=== PATIENT | female | born 1930 | race Caucasian/White ===

== ENCOUNTER 2021-07-20 07:06 | Inpatient (IN) | payer MEDICARE, BC ==
[2021-07-20] MEDS ORDERED: Sodium Chloride 0.9% 2.5 ML Syringe FLUSH PRN ×2 (07:16→11:38)
[2021-07-20] MEDS ORDERED: Sodium Chloride 0.9% 10 ML Syringe FLUSH PRN ×2 (07:16→11:38)
[2021-07-20] MEDS ORDERED: Gabapentin 100 MG Cap PO ONE (07:31)
[2021-07-20] MEDS ORDERED: Hydrochlorothiazide/Losartan 12.5-50 mg Tab PO STA (07:33)
[2021-07-20] MEDS ORDERED: Albuterol/Ipratropium 3.0-0.5 MG/3 ML Neb Soln NEB ONE (07:33)
[2021-07-20] MEDS ORDERED: Ondansetron 4 MG/2 ML SDV IVPUSH ONE (07:55)
[2021-07-20] MEDS ORDERED: Morphine 2 MG/ML SYRINGE IVPUSH ONE (07:55)
[2021-07-20 08:37] LABS: BLOOD UREA NITROGEN,BUN 26 mg/dL (7.0-18.0); CARBON DIOXIDE,CO2 25.4 mmol/L (21.0-32.0); CHLORIDE,CL 101 mmol/L (98-107); GLUCOSE RANDOM 195 mg/dL (74-106); POTASSIUM,K 4.2 mmol/L (3.5-5.1); SODIUM,NA 138 mmol/L (136-145)
[2021-07-20] MEDS ORDERED: Acetaminophen 325 MG Tab PO PRN (11:38)
[2021-07-20] MEDS ORDERED: Ondansetron 4 MG/2 ML SDV IVPUSH PRN (11:40)
[2021-07-20] MEDS ORDERED: Albuterol/Ipratropium 3.0-0.5 MG/3 ML Neb Soln NEB PRN (11:40)
[2021-07-20] MEDS ORDERED: Bisacodyl 10 MG Supp RECTAL PRN (11:45)
[2021-07-20] MEDS ORDERED: 50% Dextrose in Water 50 ML Syringe IVPUSH PRN (11:46)
[2021-07-20] MEDS ORDERED: Glucagon,Human Recombinant 1 MG Vial IM PRN (11:46)
[2021-07-20] MEDS: Insulin Aspart 100 Units/ML 3 ML Pen SUBCUT SCH ×2 (14:01→17:37)
[2021-07-20] MEDS ORDERED: Fluticasone NASAL Spray 16 GM Bottle NASBOTH PRN (14:47)
[2021-07-20] MEDS ORDERED: Magnesium Hydroxide 400 MG/5 ML Susp 30 ML Cup PO PRN (14:47)
[2021-07-20] MEDS: Omeprazole 20 MG Cap.CR PO SCH (17:37)
[2021-07-20] MEDS: Albuterol 8 GM Inhaler INH SCH (17:38)
[2021-07-20] MEDS: Morphine 2 MG/ML SYRINGE IVPUSH PRN ×2 (17:38→21:51)
[2021-07-20] MEDS: Latanoprost 0.005% Ophth Soln 2.5 ML Bottle EYERT SCH (21:00)
[2021-07-20] MEDS ORDERED: LORazepam 0.5 MG Tab PO SCH (21:00)
[2021-07-20] MEDS: Docusate Sodium 100 MG Cap PO SCH (21:55)
[2021-07-20] MEDS: Gabapentin 100 MG Cap PO SCH (21:55)
[2021-07-20] MEDS: Fish Oil/Omega-3 Fatty Acids 1 Gm Cap PO SCH (21:55)
[2021-07-20] MEDS: Gabapentin 300 MG Cap PO SCH (21:55)
[2021-07-20] MEDS: Calcium Carbonate/Vitamin D3 1500 MG-400 Units Tab PO SCH (21:56)
[2021-07-20] MEDS: LORazepam 1 MG Tab PO SCH (21:57)
[2021-07-20] MEDS ORDERED: Lactated Ringers 1,000 ML IV ONE (23:30)
[2021-07-21] MEDS: Morphine 2 MG/ML SYRINGE IVPUSH PRN ×3 (00:39→18:04)
[2021-07-21] MEDS: Fish Oil/Omega-3 Fatty Acids 1 Gm Cap PO SCH ×3 (06:08→21:32)
[2021-07-21] MEDS: Albuterol 8 GM Inhaler INH SCH ×3 (06:20→18:06)
[2021-07-21 09:10] LABS: CARBON DIOXIDE,CO2 27.9 mmol/L (21.0-32.0); POTASSIUM,K 4.1 mmol/L (3.5-5.1)
[2021-07-21] MEDS: LORazepam 1 MG Tab PO SCH ×2 (09:33→21:31)
[2021-07-21] MEDS: Insulin Aspart 100 Units/ML 3 ML Pen SUBCUT SCH ×4 (09:33→18:09)
[2021-07-21] MEDS: Docusate Sodium 100 MG Cap PO SCH ×2 (09:34→21:32)
[2021-07-21] MEDS: Citalopram 20 MG Tab PO SCH (09:34)
[2021-07-21] MEDS: Hydrochlorothiazide/Losartan 12.5-50 mg Tab PO SCH (09:34)
[2021-07-21] MEDS: Calcium Carbonate/Vitamin D3 1500 MG-400 Units Tab PO SCH ×2 (09:34→21:32)
[2021-07-21] MEDS: Multivitamin Tab PO SCH (09:35)
[2021-07-21] MEDS: Gabapentin 100 MG Cap PO SCH ×2 (09:35→21:32)
[2021-07-21] MEDS ORDERED: ceFAZolin 2 GM in Premix Bag 1 BAG IV ONE (12:00)
[2021-07-21] MEDS ORDERED: Tranexamic Acid 1,000 MG in Sodium Chloride 0.9% 100 ML IV ONE (12:00)
[2021-07-21] MEDS ORDERED: Dexamethasone 4 MG/ML 5 ML MDV ONE (12:44)
[2021-07-21] MEDS ORDERED: Lidocaine 2% 5 ML SDV ONE (12:44)
[2021-07-21] MEDS ORDERED: Propofol 200 MG/20 ML SDV ONE ×2 (12:44→14:51)
[2021-07-21] MEDS ORDERED: fentaNYL 100 MCG/2 ML SDV ONE ×3 (12:44→14:12)
[2021-07-21] MEDS ORDERED: Ondansetron 4 MG/2 ML SDV ONE (12:44)
[2021-07-21] MEDS ORDERED: Albuterol 0.083% 2.5 MG/3 ML Neb Soln NEB PRN (13:18)
[2021-07-21] MEDS ORDERED: Naloxone 0.4 MG/ML SDV IVPUSH PRN (13:18)
[2021-07-21] MEDS ORDERED: Metoclopramide 10 MG/2 ML SDV IVPUSH PRN (13:18)
[2021-07-21] MEDS ORDERED: HYDROmorphone 1 MG/ML Syringe IVPUSH PRN (13:18)
[2021-07-21] MEDS ORDERED: fentaNYL 100 MCG/2 ML SDV IVPUSH PRN (13:18)
[2021-07-21] MEDS ORDERED: Ondansetron 4 MG/2 ML SDV IVPUSH PRN (13:18)
[2021-07-21] MEDS ORDERED: Ketamine HCL/NACL, ISO-OSM 50 MG/5 ML Syringe ONE (14:21)
[2021-07-21] MEDS ORDERED: Octyl 2-Cyanoacrylate 1 Tube ONE ×2 (14:57→15:01)
[2021-07-21] MEDS ORDERED: traMADol 50 MG Tab PO PRN (15:54)
[2021-07-21] MEDS: Omeprazole 20 MG Cap.CR PO SCH (18:05)
[2021-07-21] MEDS: Latanoprost 0.005% Ophth Soln 2.5 ML Bottle EYERT SCH (21:00)
[2021-07-21] MEDS: ceFAZolin 2 GM in Premix Bag 1 BAG IV SCH (21:32)
[2021-07-21] MEDS: Gabapentin 300 MG Cap PO SCH (21:32)
[2021-07-22] MEDS: Albuterol 8 GM Inhaler INH SCH ×4 (00:05→13:12)
[2021-07-22] MEDS: Fish Oil/Omega-3 Fatty Acids 1 Gm Cap PO SCH ×3 (06:10→21:44)
[2021-07-22] MEDS: ceFAZolin 2 GM in Premix Bag 1 BAG IV SCH (06:13)
[2021-07-22 08:08] LABS: CARBON DIOXIDE,CO2 27.4 mmol/L (21.0-32.0); POTASSIUM,K 4.4 mmol/L (3.5-5.1)
[2021-07-22] MEDS: Docusate Sodium 100 MG Cap PO SCH ×2 (08:35→21:43)
[2021-07-22] MEDS: Calcium Carbonate/Vitamin D3 1500 MG-400 Units Tab PO SCH ×2 (08:35→21:43)
[2021-07-22] MEDS: Gabapentin 100 MG Cap PO SCH (08:35)
[2021-07-22] MEDS: Multivitamin Tab PO SCH (08:35)
[2021-07-22] MEDS: Hydrochlorothiazide/Losartan 12.5-50 mg Tab PO SCH (08:36)
[2021-07-22] MEDS: Citalopram 20 MG Tab PO SCH (08:36)
[2021-07-22] MEDS: Polyethylene Glycol 3350 Powder 17 GM Packet PO SCH (08:38)
[2021-07-22] MEDS: Insulin Aspart 100 Units/ML 3 ML Pen SUBCUT SCH ×3 (09:07→17:39)
[2021-07-22] MEDS: traMADol 50 MG Tab PO PRN (10:18)
[2021-07-22] MEDS: LORazepam 1 MG Tab PO SCH ×2 (13:17→21:44)
[2021-07-22] MEDS: Morphine 2 MG/ML SYRINGE IVPUSH PRN (14:29)
[2021-07-22] MEDS: Enoxaparin 40 MG/0.4 ML Syringe SUBCUT SCH (17:38)
[2021-07-22] MEDS: Omeprazole 20 MG Cap.CR PO SCH (17:39)
[2021-07-22] MEDS: Gabapentin 300 MG Cap PO SCH (21:43)
[2021-07-22] MEDS: Latanoprost 0.005% Ophth Soln 2.5 ML Bottle EYERT SCH (22:17)
[2021-07-23] MEDS: Albuterol 8 GM Inhaler INH SCH ×5 (02:07→19:08)
[2021-07-23] MEDS: traMADol 50 MG Tab PO PRN ×3 (02:10→21:22)
[2021-07-23] MEDS: Gabapentin 100 MG Cap PO SCH ×3 (04:45→13:17)
[2021-07-23] MEDS: Fish Oil/Omega-3 Fatty Acids 1 Gm Cap PO SCH ×3 (05:54→21:20)
[2021-07-23 06:43] LABS: CARBON DIOXIDE,CO2 28.5 mmol/L (21.0-32.0); POTASSIUM,K 4.1 mmol/L (3.5-5.1)
[2021-07-23] MEDS: Insulin Aspart 100 Units/ML 3 ML Pen SUBCUT SCH ×3 (08:27→17:32)
[2021-07-23] MEDS: Hydrochlorothiazide/Losartan 12.5-50 mg Tab PO SCH (08:28)
[2021-07-23] MEDS: Docusate Sodium 100 MG Cap PO SCH ×2 (08:28→21:21)
[2021-07-23] MEDS: LORazepam 1 MG Tab PO SCH ×2 (08:29→21:21)
[2021-07-23] MEDS: Multivitamin Tab PO SCH (08:29)
[2021-07-23] MEDS: Polyethylene Glycol 3350 Powder 17 GM Packet PO SCH (08:29)
[2021-07-23] MEDS: Calcium Carbonate/Vitamin D3 1500 MG-400 Units Tab PO SCH ×2 (08:29→21:21)
[2021-07-23] MEDS: Citalopram 20 MG Tab PO SCH (08:29)
[2021-07-23] MEDS: Enoxaparin 40 MG/0.4 ML Syringe SUBCUT SCH (14:49)
[2021-07-23] MEDS: Omeprazole 20 MG Cap.CR PO SCH (17:34)
[2021-07-23] MEDS: Gabapentin 300 MG Cap PO SCH (21:20)
[2021-07-23] MEDS: Latanoprost 0.005% Ophth Soln 2.5 ML Bottle EYERT SCH (21:23)
[2021-07-24] MEDS: Albuterol 8 GM Inhaler INH SCH ×3 (00:35→11:06)
[2021-07-24] MEDS: traMADol 50 MG Tab PO PRN ×2 (03:25→11:12)
[2021-07-24] MEDS: Fish Oil/Omega-3 Fatty Acids 1 Gm Cap PO SCH (06:15)
[2021-07-24] MEDS: Gabapentin 100 MG Cap PO SCH (08:31)
[2021-07-24] MEDS: LORazepam 1 MG Tab PO SCH (08:31)
[2021-07-24] MEDS: Hydrochlorothiazide/Losartan 12.5-50 mg Tab PO SCH (08:31)
[2021-07-24] MEDS: Polyethylene Glycol 3350 Powder 17 GM Packet PO SCH (08:31)
[2021-07-24] MEDS: Citalopram 20 MG Tab PO SCH (08:32)
[2021-07-24] MEDS: Multivitamin Tab PO SCH (08:32)
[2021-07-24] MEDS: Calcium Carbonate/Vitamin D3 1500 MG-400 Units Tab PO SCH (08:33)
[2021-07-24] MEDS: Docusate Sodium 100 MG Cap PO SCH (08:33)
[2021-07-24] MEDS: Insulin Aspart 100 Units/ML 3 ML Pen SUBCUT SCH (08:34)
== END 2021-07-24 11:50 | DRG 482 ==
LOC: MW.ED 07:06 → MW.MS 10:27
PROVIDERS: ADMIT Student in an Organized Health Care Education/Training Program; ATTEND Student in an Organized Health Care Education/Training Program
PROC: 0QS706Z Reposition Left Upper Femur with Intramedullary Internal Fixation Device, Open Approach (ICD-10-PCS; principal; 2021-07-21)
DX: S72.142A Displaced intertrochanteric fracture of left femur, initial encounter for closed fracture (principal); S51.811A Laceration without foreign body of right forearm, initial encounter; M85.80 Other specified disorders of bone density and structure, unspecified site; G47.33 Obstructive sleep apnea (adult) (pediatric); I10 Essential (primary) hypertension; E78.5 Hyperlipidemia, unspecified; E11.9 Type 2 diabetes mellitus without complications; K21.9 Gastro-esophageal reflux disease without esophagitis; Z66 Do not resuscitate; J44.9 Chronic obstructive pulmonary disease, unspecified; Z20.822 Contact with and (suspected) exposure to COVID-19; E78.00 Pure hypercholesterolemia, unspecified; F41.9 Anxiety disorder, unspecified; R53.1 Weakness; F32.A Depression, unspecified; H40.9 Unspecified glaucoma; H35.30 Unspecified macular degeneration; M19.90 Unspecified osteoarthritis, unspecified site; E66.9 Obesity, unspecified; Z99.89 Dependence on other enabling machines and devices; Z85.528 Personal history of other malignant neoplasm of kidney; Z86.16 Personal history of COVID-19; Z88.1 Allergy status to other antibiotic agents; Z88.8 Allergy status to other drugs, medicaments and biological substances; Z79.82 Long term (current) use of aspirin; Z79.899 Other long term (current) drug therapy; Z87.891 Personal history of nicotine dependence; Z68.35 Body mass index [BMI] 35.0-35.9, adult; W19.XXXA Unspecified fall, initial encounter
CPT/HCPCS: 36415; 71045; 73502; 80053; 83880; 84484; 85025; 93005; A9270 ×2; J2270; J2405; U0002; 01210; 51798; 80048; 81001; 82947; 83735; 86850; 86900; 86901; 93010; 97110-GP; 97163-GP; 99100; 99284; C1713; C1769; J0131; J0690; J1100; J1650; J1815-GY; J2370; J2704; J3010; J3490; J7120; J7620-GY